=== PATIENT | female | born 1980 | race American Indian/Alaskan Native ===

== ENCOUNTER 2019-03-11 00:42 | Emergency (ER) | payer MEDICARE ==
--- NOTE | 2019-03-11 01:59 | Emergency Department Report ---
<STEVE PRATHER - Last Filed: 03/11/19 04:52> ED General Adult HPI - General Chief complaint: Abdominal Pain Stated complaint: ABD PAIN/MH EVAL Time Seen by Provider: 03/11/19 01:37 - Related Data Previous Rx's Medication Instructions Recorded Last Taken Type Ibuprofen [Motrin 800 MG tab] 800 mg PO TID PRN #30 tablet 07/08/14 Unknown Rx cephALEXin [Keflex] 500 mg PO BID #14 capsule 07/08/14 Unknown Rx Benztropine [Cogentin] 0.5 mg PO DAILY #30 tablet 03/12/19 Unknown Rx risperiDONE [RisperDAL] 1 mg PO BID #60 tablet 03/12/19 Unknown Rx Allergies Allergy/AdvReac Type Severity Reaction Status Date / Time iodine Allergy Unknown Verified 07/08/14 16:29 ED Past Medical Hx - Medications Home Medications: Home Medications Medication Instructions Recorded Confirmed Last Taken Type Ibuprofen [Motrin 800 MG tab] 800 mg PO TID PRN #30 tablet 07/08/14 Unknown Rx cephALEXin [Keflex] 500 mg PO BID #14 capsule 07/08/14 Unknown Rx Benztropine [Cogentin] 0.5 mg PO DAILY #30 tablet 03/12/19 Unknown Rx risperiDONE [RisperDAL] 1 mg PO BID #60 tablet 03/12/19 Unknown Rx ED Medical Decision Making - Lab Data Result diagrams: 03/11/19 01:54 03/11/19 01:54 ED Disposition Clinical Impression: Delusions, Medical clearance for psychiatric admission Psychosis Qualifiers: Psychosis type: unspecified psychosis type Qualified Code(s): F29 - Unspecified psychosis not due to a substance or known physiological condition Schizophrenia Qualifiers: Schizophrenia type: unspecified Qualified Code(s): F20.9 - Schizophrenia, unspecified Disposition: DC-01 TO HOME OR SELFCARE Is pt being admited?: No Condition: Stable Instructions: Schizophrenia (ED), Abdominal Pain (ED) Prescriptions: Benztropine [Cogentin] 0.5 mg PO DAILY #30 tablet risperiDONE [RisperDAL] 1 mg PO BID #60 tablet Referrals: [facility] [Provider Group] - 3-[address] [facility] [Outside] - 3-5 Days [facility] [Primary Care Provider] - 3-5 Days Time of Disposition: 04:52 <MARY PICKARD Last Filed: 03/17/19 05:09> ED General Adult HPI - General Source: patient, EMS Mode of arrival: Ambulatory Limitations: Other - History of Present Illness Initial comments: Patient is a 38-year-old female presents emergency room with complaints of gener alized abdominal discomfort that began 2 weeks ago. She states that she has also had constipation for a week but has not taken anything for it. Patient states that she believes she may have a "tapeworm." pt states that she believes her brother "had a tapeworm" she then begins speaking about different topics and speaking quickly. she is then whispering to herself. She denies ever having this in the past. She denies any vomiting, diarrhea, fever, urinary symptoms. She denies any SI, HI, or hallucinations. She has a past medical history of hypertension and hyperlipidemia. She denies any allergies medications. She is a nonsmoker, nondrinker, no drug use. ED Review of Systems ROS: Stated complaint: ABD PAIN/MH EVAL Other details as noted in HPI Comment: All other systems reviewed and negative ED Past Medical Hx - Past Medical History Hx Psychiatric Treatment: Yes (schizophrenia) Additional medical history: hyperlipidemia, hypothyroid - Social History Smoking Status: Never Smoker Substance Use Type: None ED Physical Exam - General Limitations: Other General appearance: alert, in no apparent distress - Head Head exam: Present: atraumatic, normocephalic - Eye Eye exam: Present: normal appearance - ENT ENT exam: Present: mucous membranes moist - Respiratory Respiratory exam: Present: normal lung sounds bilaterally. Absent: respiratory distress, wheezes, rales, rhonchi, stridor, chest wall tenderness, accessory muscle use, decreased breath sounds, prolonged expiratory - Cardiovascular Cardiovascular Exam: Present: regular rate, normal rhythm, normal heart sounds. Absent: systolic murmur, diastolic murmur, rubs, gallop - GI/Abdominal GI/Abdominal exam: Present: soft, normal bowel sounds. Absent: distended, tenderness, guarding, rebound, rigid - Back Exam Back exam: Absent: CVA tenderness (R), CVA tenderness (L) - Neurological Exam Neurological exam: Present: alert, oriented X3 - Psychiatric Psychiatric exam: Present: other (tangential speech, pressured speech) - Skin Skin exam: Present: warm, dry, intact ED Course Vital Signs 03/11/19 03/11/19 03/11/19 00:58 02:03 07:44 Temperature 98.1 F 98.2 F 98.6 F Pulse Rate 99 H 93 H 85 Respiratory 16 18 18 Rate Blood Pressure 116/76 Blood Pressure 122/84 114/80 [Right] O2 Sat by Pulse 98 98 100 Oximetry 03/11/19 03/11/19 03/12/19 13:55 19:12 02:05 Temperature 98.4 F 98.0 F 98.6 F Pulse Rate 99 H 89 88 Respiratory 18 18 18 Rate Blood Pressure Blood Pressure 108/71 117/76 112/71 [Right] O2 Sat by Pulse 99 98 98 Oximetry 03/12/19 03/12/19 09:29 14:01 Temperature 97.3 F L 98.7 F Pulse Rate 92 H 108 H Respiratory 18 Rate Blood Pressure Blood Pressure 109/75 93/62 [Right] O2 Sat by Pulse 100 100 Oximetry ED Medical Decision Making - Lab Data Result diagrams: 03/11/19 01:54 03/11/19 01:54 Lab Results 03/11/19 03/11/19 03/11/19 Range/Units 01:54 01:54 01:54 WBC 7.5 (4.5-11.0) K/mm3 RBC 4.10 (3.65-5.03) M/mm3 Hgb 12.1 (10.1-14.3) gm/dl Hct 35.5 (30.3-42.9) % MCV 87 (79-97) fl MCH 29 (28-32) pg MCHC 34 (30-34) % RDW 13.1 L (13.2-15.2) % Plt Count 442 H (140-440) K/mm3 Lymph % (Auto) 26.0 (13.4-35.0) % Bacon % (Auto) 11.0 H (0.0-7.3) % Eos % (Auto) 0.9 (0.0-4.3) % Baso % (Auto) 1.0 (0.0-1.8) % Lymph # 1.9 (1.2-5.4) K/mm3 Bacon # 0.8 (0.0-0.8) K/mm3 Eos # 0.1 (0.0-0.4) K/mm3 Baso # 0.1 (0.0-0.1) K/mm3 Seg Neutrophils % 61.1 (40.0-70.0) % Seg Neutrophils # 4.6 (1.8-7.7) K/mm3 Sodium 138 (137-145) mmol/L Potassium 3.5 L (3.6-5.0) mmol/L Chloride 98.8 (98-107) mmol/L Carbon Dioxide 27 (22-30) mmol/L Anion Gap 16 mmol/L BUN 9 (7-17) mg/dL Creatinine 0.7 (0.7-1.2) mg/dL Estimated GFR > 60 ml/min BUN/Creatinine Ratio 13 % Glucose 103 H (65-100) mg/dL Calcium 9.4 (8.4-10.2) mg/dL Total Bilirubin 0.20 (0.1-1.2) mg/dL AST 31 (5-40) units/L ALT 12 (7-56) units/L Alkaline Phosphatase 104 (35-129) units/L Total Creatine Kinase 837 H (30-135) units/L Total Protein 7.3 (6.3-8.2) g/dL Albumin 4.1 (3.9-5) g/dL Albumin/Globulin Ratio 1.3 % Lipase 35 (13-60) units/L HCG, Qual (Negative) Urine Color (Yellow) Urine Turbidity (Clear) Urine pH (5.0-7.0) Ur Specific [place] (1.003-1.030) Urine Protein (Negative) mg/dL Urine Glucose (UA) (Negative) mg/dL Urine Ketones (Negative) mg/dL Urine Blood (Negative) Urine Nitrite (Negative) Urine Bilirubin (Negative) Urine Urobilinogen (<2.0) mg/dL Ur Leukocyte Esterase (Negative) Urine WBC (Auto) (0.0-6.0) /HPF Urine RBC (Auto) (0.0-6.0) /HPF U Epithel Cells (Auto) (0-13.0) /HPF Salicylates < 0.3 L (2.8-20.0) mg/dL Urine Opiates Screen Urine Methadone Screen Acetaminophen (10.0-30.0) ug/mL Ur Barbiturates Screen Ur Phencyclidine Scrn Ur Amphetamines Screen U Benzodiazepines Scrn Urine Cocaine Screen U Marijuana (THC) Screen Drugs of Abuse Note Plasma/Serum Alcohol (0-0.07) % 03/11/19 03/11/19 03/11/19 Range/Units 01:54 01:54 01:54 WBC (4.5-11.0) K/mm3 RBC (3.65-5.03) M/mm3 Hgb (10.1-14.3) gm/dl Hct (30.3-42.9) % MCV (79-97) fl MCH (28-32) pg MCHC (30-34) % RDW (13.2-15.2) % Plt Count (140-440) K/mm3 Lymph % (Auto) (13.4-35.0) % Bacon % (Auto) (0.0-7.3) % Eos % (Auto) (0.0-4.3) % Baso % (Auto) (0.0-1.8) % Lymph # (1.2-5.4) K/mm3 Bacon # (0.0-0.8) K/mm3 Eos # (0.0-0.4) K/mm3 Baso # (0.0-0.1) K/mm3 Seg Neutrophils % (40.0-70.0) % Seg Neutrophils # (1.8-7.7) K/mm3 Sodium (137-145) mmol/L Potassium (3.6-5.0) mmol/L Chloride (98-107) mmol/L Carbon Dioxide (22-30) mmol/L Anion Gap mmol/L BUN (7-17) mg/dL Creatinine (0.7-1.2) mg/dL Estimated GFR ml/min BUN/Creatinine Ratio % Glucose (65-100) mg/dL Calcium (8.4-10.2) mg/dL Total Bilirubin (0.1-1.2) mg/dL AST (5-40) units/L ALT (7-56) units/L Alkaline Phosphatase (35-129) units/L Total Creatine Kinase (30-135) units/L Total Protein (6.3-8.2) g/dL Albumin (3.9-5) g/dL Albumin/Globulin Ratio % Lipase (13-60) units/L HCG, Qual Negative (Negative) Urine Color (Yellow) Urine Turbidity (Clear) Urine pH (5.0-7.0) Ur Specific [place] (1.003-1.030) Urine Protein (Negative) mg/dL Urine Glucose (UA) (Negative) mg/dL Urine Ketones (Negative) mg/dL Urine Blood (Negative) Urine Nitrite (Negative) Urine Bilirubin (Negative) Urine Urobilinogen (<2.0) mg/dL Ur Leukocyte Esterase (Negative) Urine WBC (Auto) (0.0-6.0) /HPF Urine RBC (Auto) (0.0-6.0) /HPF U Epithel Cells (Auto) (0-13.0) /HPF Salicylates (2.8-20.0) mg/dL Urine Opiates Screen Urine Methadone Screen Acetaminophen < 5.0 L (10.0-30.0) ug/mL Ur Barbiturates Screen Ur Phencyclidine Scrn Ur Amphetamines Screen U Benzodiazepines Scrn Urine Cocaine Screen U Marijuana (THC) Screen Drugs of Abuse Note Plasma/Serum Alcohol < 0.01 (0-0.07) % 03/11/19 03/11/19 Range/Units 03:26 03:26 WBC (4.5-11.0) K/mm3 RBC (3.65-5.03) M/mm3 Hgb (10.1-14.3) gm/dl Hct (30.3-42.9) % MCV (79-97) fl MCH (28-32) pg MCHC (30-34) % RDW (13.2-15.2) % Plt Count (140-440) K/mm3 Lymph % (Auto) (13.4-35.0) % Bacon % (Auto) (0.0-7.3) % Eos % (Auto) (0.0-4.3) % Baso % (Auto) (0.0-1.8) % Lymph # (1.2-5.4) K/mm3 Bacon # (0.0-0.8) K/mm3 Eos # (0.0-0.4) K/mm3 Baso # (0.0-0.1) K/mm3 Seg Neutrophils % (40.0-70.0) % Seg Neutrophils # (1.8-7.7) K/mm3 Sodium (137-145) mmol/L Potassium (3.6-5.0) mmol/L Chloride (98-107) mmol/L Carbon Dioxide (22-30) mmol/L Anion Gap mmol/L BUN (7-17) mg/dL Creatinine (0.7-1.2) mg/dL Estimated GFR ml/min BUN/Creatinine Ratio % Glucose (65-100) mg/dL Calcium (8.4-10.2) mg/dL Total Bilirubin (0.1-1.2) mg/dL AST (5-40) units/L ALT (7-56) units/L Alkaline Phosphatase (35-129) units/L Total Creatine Kinase (30-135) units/L Total Protein (6.3-8.2) g/dL Albumin (3.9-5) g/dL Albumin/Globulin Ratio % Lipase (13-60) units/L HCG, Qual (Negative) Urine Color Straw (Yellow) Urine Turbidity Clear (Clear) Urine pH 6.0 (5.0-7.0) Ur Specific [place] 1.011 (1.003-1.030) Urine Protein <15 mg/dl (Negative) mg/dL Urine Glucose (UA) Neg (Negative) mg/dL Urine Ketones Neg (Negative) mg/dL Urine Blood Neg (Negative) Urine Nitrite Neg (Negative) Urine Bilirubin Neg (Negative) Urine Urobilinogen < 2.0 (<2.0) mg/dL Ur Leukocyte Esterase Neg (Negative) Urine WBC (Auto) 1.0 (0.0-6.0) /HPF Urine RBC (Auto) 2.0 (0.0-6.0) /HPF U Epithel Cells (Auto) 1.0 (0-13.0) /HPF Salicylates (2.8-20.0) mg/dL Urine Opiates Screen Presumptive negative Urine Methadone Screen Presumptive negative Acetaminophen (10.0-30.0) ug/mL Ur Barbiturates Screen Presumptive negative Ur Phencyclidine Scrn Presumptive negative Ur Amphetamines Screen Presumptive negative U Benzodiazepines Scrn Presumptive negative Urine Cocaine Screen Presumptive negative U Marijuana (THC) Screen Presumptive negative Drugs of Abuse Note Disclamer Plasma/Serum Alcohol (0-0.07) % - Radiology Data Radiology results: report reviewed ABDOMEN 2 VIEW(S) 2:54 AM INDICATION / CLINICAL INFORMATION: Abdominal pain for 2 weeks. Constipation COMPARISON: None available. FINDINGS: TUBES / LINES: None. BOWEL GAS PATTERN: There is a moderate amount stool throughout the colon. I see no evidence of bowel obstruction or mass effect. FREE AIR / EXTRALUMINAL GAS: None seen. ADDITIONAL FINDINGS: There are multiple phleboliths in the left lower pelvis. IMPRESSION: Moderate amount of stool throughout the colon without acute abnormality. Signer Name: Nate Thomas MD Signed: 03/11/2019 3:02 AM Workstation Name: [id number] Transcribed By: RT Dictated By: Nate Thomas MD Electronically Authenticated By: Nate Thomas MD Signed Date/Time: 03/11/19301 DD/ 0 TD/TT: - Medical Decision Making Patient is a 38-year-old female presents emergency room with complaints of generalized abdominal discomfort that began 2 weeks ago. She states that she has also had constipation for a week but has not taken anything for it. Patient states that she believes she may have a "tapeworm." pt states that she believes her brother "had a tapeworm" she then begins speaking about different topics and speaking quickly. she is then whispering to herself. She denies ever having this in the past. She denies any vomiting, diarrhea, fever, urinary symptoms. She denies any SI, HI, or hallucinations. She has a past medical history of hypertension and hyperlipidemia. She denies any allergies medications. She is a nonsmoker, nondrinker, no drug use. vitals are normal. labs significant for mildly elevated CK, ordered 1L of NS. UA without evidence of UTI. UDS is negative. XR abd Moderate amount of stool throughout the colon without acute abnormality. pt given medications for constipation. Given patient's affect and speech and appears patient has an acute psychosis stat mental health consult ordered Screening laboratory testing performed there is no medical emergency at this time preventing mental health evaluation - Differential Diagnosis UTI, constipation, obstruction, psychosis, schizophrenia, bipolar Critical care attestation.: If time is entered above; I have spent that time in minutes in the direct care of this critically ill patient, excluding procedure time. ED Disposition Is pt being admited?: No Does the pt Need Aspirin: No
[2019-03-11 02:15] LABS: Basophils # (Auto) 0.1 K/mm3 (0.0-0.1); Eosinophils # (Auto) 0.1 K/mm3 (0.0-0.4); Eosinophils % (Auto) 0.9 % (0.0-4.3); Hematocrit 35.5 % (30.3-42.9); Hemoglobin 12.1 gm/dl (10.1-14.3); Lymphocytes # (Auto) 1.9 K/mm3 (1.2-5.4); Mean Corpuscular HGB Conc 34 % (30-34); Mean Corpuscular Volume 87 fl (79-97); Monocytes # (Auto) 0.8 K/mm3 (0.0-0.8); Platelet Count 442 K/mm3 (140-440); Red Cell Distribution Width 13.1 % (13.2-15.2)
[2019-03-11 02:32] LABS: Alanine Aminotransferase 12 units/L (7-56); Albumin 4.1 g/dL (3.9-5); BUN/Creatinine Ratio 13; Blood Urea Nitrogen 9 mg/dL (7-17); Calcium 9.4 mg/dL (8.4-10.2); Hemolysis Index 24
[2019-03-11] MEDS ORDERED: POTASSIUM CHLORIDE ER 20 MEQ TAB PO ONE (02:37)
[2019-03-11] MEDS ORDERED: SODIUM CHLORIDE 0.9% 1000 ML 1,000 ML IV ONE (02:37)
--- NOTE | 2019-03-11 03:06 | XRay Report ---
ABDOMEN 2 VIEW(S) 2:54 AM INDICATION / CLINICAL INFORMATION: Abdominal pain for 2 weeks. Constipation COMPARISON: None available. FINDINGS: TUBES / LINES: None. BOWEL GAS PATTERN: There is a moderate amount stool throughout the colon. I see no evidence of bowel obstruction or mass effect. FREE AIR / EXTRALUMINAL GAS: None seen. ADDITIONAL FINDINGS: There are multiple phleboliths in the left lower pelvis. IMPRESSION: Moderate amount of stool throughout the colon without acute abnormality. Signer Name: Nate Thomas MD Signed: 03/11/2019 3:02 AM Workstation Name: [id number]
[2019-03-11] MEDS ORDERED: DOCUSATE SODIUM 100 MG CAP PO ONE (03:20)
[2019-03-11] MEDS ORDERED: MAGNESIUM CITRATE 300 ML ORAL LIQD PO ONE (03:20)
[2019-03-11 04:05] LABS: Bilirubin,Urine NEG (Negative); Blood,Urine NEG (Negative); Color,Urine Straw (Yellow); Protein,Urine <15 mg/dL mg/dL (Negative); Urobilinogen,Urine < 2.0 mg/dL (<2.0)
[2019-03-11 04:06] LABS: Amphetamine Screen,Urine PRESUMPTIVE NEGATIVE; Benzodiazepines Screen,Urine PRESUMPTIVE NEGATIVE; Cannabinoid Screen,Urine PRESUMPTIVE NEGATIVE; Cocaine Screen,Urine PRESUMPTIVE NEGATIVE; Methadone Screen,Urine PRESUMPTIVE NEGATIVE; Opiate Screen,Urine PRESUMPTIVE NEGATIVE
[2019-03-12] MEDS ORDERED: LORazepam 2 MG/ML VIAL IM ONE (01:28)
[2019-03-12] MEDS ORDERED: LORazepam 2 MG/ML VIAL ONE (01:31)
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
[2019-03-12 14:02] VITALS: BP 93/62
== END 2019-03-12 13:32 | disposition home or self-care (01) ==
LOC: ED 00:42
DX: R10.84 Generalized abdominal pain (principal); F29 Unspecified psychosis not due to a substance or known physiological condition; F20.9 Schizophrenia, unspecified; F22 Delusional disorders; I10 Essential (primary) hypertension; E78.5 Hyperlipidemia, unspecified; Z79.899 Other long term (current) drug therapy
CPT/HCPCS: 36415; 74019; 80053; 80307; 81001; 82550; 83690; 84703; 85025; 96372; 99285; J2060; 80320; G0480